=== PATIENT | female | born 1930 | race Caucasian/White ===

== ENCOUNTER 2018-07-31 15:54 | Inpatient (IN) ==
[2018-07-31] MEDS: Ondansetron ODT 4 MG TAB.RAPDIS SL PRN (20:06)
[2018-07-31] MEDS: *HR* OxyCODONE/APAP 5/325 TABLET PO PRN (20:06)
[2018-07-31] MEDS: Budesonide/Formoterol 160/4.5 1 PUFF INH IH SCH (22:43)
[2018-08-01] MEDS: *HR* OxyCODONE/APAP 5/325 TABLET PO PRN ×2 (03:14→08:50)
[2018-08-01] MEDS: Ondansetron ODT 4 MG TAB.RAPDIS SL PRN ×3 (03:14→20:34)
[2018-08-01] MEDS: Cholecalciferol (D-3) 1,000 UNIT (25MCG) TABLET PO SCH (08:50)
[2018-08-01] MEDS: Budesonide/Formoterol 160/4.5 1 PUFF INH IH SCH ×2 (09:15→21:22)
--- NOTE | 2018-08-01 15:03 | Internal Med History&Physical ---
Date of Encounter: 08/01/18 Time of Encounter: 14:30 Assessment and Plan (1) Humeral head fracture Current visit: No Status: Acute Status post reverse right TSR. PT and OT evaluations have been ordered. Percocet has been ordered for pain. Qualifiers: Encounter type: initial encounter Fracture type: closed Laterality: right Qualified Code(s): S42.291A - Other displaced fracture of upper end of right humerus, initial encounter for closed fracture (2) Anemia Current visit: Yes Status: Acute Anemia testing will be done in a.m. Qualifiers: Anemia type: unspecified type Qualified Code(s): D64.9 - Anemia, unspecifi ed (3) COPD (chronic obstructive pulmonary disease) Current visit: No Status: Chronic By history. She is asymptomatic at this time. Continue Symbicort Qualifiers: COPD type: unspecified COPD Qualified Code(s): J44.9 - Chronic obstructive pulmonary disease, unspecified Internal Medicine - H&P: HPI Chief complaint: Right shoulder fracture repair Admitted From: Hospital to Hospital Transfer Plans for Post Hospital Care: Home History of present illness: Ms. Zamudio is a 88 year old female who was transferred to [facility] swing bed after an [facility] July 1316 stay following a fall on the sidewalk at [facility] resulting in comminuted displaced fracture of the humeral head and anterior glenohumeral joint dislocation. She underwent reverse right TSR 08/13/2018. Her postop course was unremarkable. She was discharged to [facility] swing bed for rehabilitation prior to returning to independent living at home. She denies arthritis gout or other bone joint or muscle disorders. She states the fall was due to tripping on an uneven sidewalk. She had some facial contusion/abrasions but there was no loss of consciousness or other significant injury sustained. Past Med Surg Social Fam HX - Past Medical History Medical history: COPD, GERD, hyperlipidemia Psychiatric history: anxiety, depression - Past Surgical History Surgical History: non-contributory Additional surgical history: right total shoulder reversal 07/27/18 - Social History Smoking Status: Never smoker Smokeless Tobacco Status: No Alcohol use: none Drug use: none - Family History Mother Hx Family Cardiac Disorders: Yes Father Hx Family Neurologic Disorders: Yes (parkinsons) Internal Medicine - H&P: Meds Cholecalciferol (Vitamin D3) [Vitamin D3] 3,000 unit PO DAILY 06/07/16 [History] Ferrous Sulfate [Iron] 325 mg PO DAILY 06/07/16 [History] Ubidecarenone [Coenzyme Q10] 100 mg PO DAILY 07/27/18 [History] Albuterol Sulfate [Proair Hfa] 1 - 2 puff IH Q4-6H PRN 07/28/18 [History] Budesonide/Formoterol 160/4.5 [Symbicort 160/4.5] 2 puff IH BIDR 07/28/18 [History] Dm Hb/PE/Acetaminophen/Chlorph [[place] Plus Cld-Cough Cp] 1 cap PO DAILY PRN 07/28/18 [History] Lovastatin 40 mg PO QPM 07/28/18 [History] Omeprazole [PriLOSEC] 20 mg PO BID PRN 07/28/18 [History] Docusate [Colace] 100 mg PO BID capsule 07/31/18 [Rx] MOM Conc [MILK OF MAGNESIA conc] 10 ml PO DAILY PRN ud.liq 07/31/18 [Rx] OxyCODONE/APAP 5/325 [Percocet 5/325 MG] 1 each PO Q4HR PRN 5 Days #20 tablet 07/31/18 [Rx] Allergy/AdvReac Type Severity Reaction Status Date / Time iodine Allergy See Verified 07/31/18 18:06 Comments sulfur dioxide Allergy Rash Verified 07/31/18 18:06 All Systems PM: A 10-system review of systems was performed and is negative for pertinent findings except as documented above in the HPI. Review of systems: Gen.: She states her weight has decreased approximately 3-5 pounds in the past year Cardiovascular: She denies hypertension CT heart failure angina DVT or pulmonary embolus Respiratory: She is a lifelong nonsmoker. She reports she has been told she has COPD but denies having PFTs. GI: She has had cholecystectomy. She denies disorders of her liver or exocrine pancreas : She has had urinary incontinence. She denies kidney or bladder disorders. Neurologic: She denies large distribution strokes or seizures. Endocrine: She has hyperlipidemia but denies diabetes or thyroid disease Hematology/oncology: She developed postop anemia after the TSR. She denies internal malignancies or other blood disorders. Psychiatric: She has had feelings of anxiety and depression recently but does not take medication for these. She denies other mental health diagnoses. [place] skeletal: As per history of present illness - Constitutional Vitals: Temp Pulse Resp BP Pulse Ox 98.7 F 74 18 103/51 94 08/01/18 06:44 08/01/18 06:44 08/01/18 09:15 08/01/18 06:44 08/01/18 09:15 Exam: Gen.: She is a well-developed well-nourished female lying quietly in bed who appears in no acute distress HEENT: Head shows resolving ecchymosis of her periorbital area bilaterally more on the right than the left. There are superficial abrasions of the skin of her nose. Eyes: EOMI. There is no scleral icterus. Mouth: Mucosa is moist. Neck: Supple and nontender. There is no thyromegaly or adenopathy noted. Heart: Regular without murmurs gallops or ectopics Lungs: No wheezes or crackles are heard. Abdomen: Soft and nontender. No masses or guarding are noted. Extremities: There is no cyanosis edema or clubbing noted of her legs. Dorsalis pedis and posterior tibial pulses are 1-2 over 2 bilaterally. The right arm is in an immobilization sling. A surgical dressing is in place over the right anterior shoulder. The left arm is unremarkable. Neurologic: Mental status: She is talkative and a good historian. Cranial nerves: Smile is symmetric. Forehead wrinkles bilaterally. Tongue protrudes midline. EOMI. Motor: There is no pronator drift. Cerebellar: Finger to nose is intact bilaterally. Skin: Warm and dry
[2018-08-02 06:09] LABS: Basophils % 0.3 %; Eosinophils # 0.3 K/mcL (0.0-0.6); Eosinophils % 4.1 %; Hematocrit 28.3 % (35.3-44.9); Immature Granulocytes % 0.7 % (0-4); Lymphocytes # 1.4 K/mcL (0.6-4.6); Lymphocytes % 19.3 %; Mean Corpuscular HGB Conc 35.3 g/dL (31.6-35.5); Mean Corpuscular Hemoglobin 34.1 pg (28.0-33.3); Mean Corpuscular Volume 96.6 fL (83.0-100.0); Mean Platelet Volume 10.9 fL (9.4-12.4); Monocytes # 0.9 K/mcL (0.0-1.3); Monocytes % 12.9 %; Neutrophils # 4.5 K/mcL (1.6-8.9); Platelet Count 180 K/mcL (140-400); Red Blood Count 2.93 M/mcL (3.82-4.97); Red Cell Distribution Width 13.8 % (11.5-14.5); Segmented Neutrophils % 62.7 %; White Blood Count 7.1 K/mcL (4.3-11.1)
[2018-08-02] MEDS: Ondansetron ODT 4 MG TAB.RAPDIS SL PRN (06:41)
[2018-08-02] MEDS: Cholecalciferol (D-3) 1,000 UNIT (25MCG) TABLET PO SCH (07:58)
[2018-08-02] MEDS: Budesonide/Formoterol 160/4.5 1 PUFF INH IH SCH ×2 (09:39→22:37)
[2018-08-02 09:48] LABS: Folate 15.1 ng/mL (3.0-16.0)
[2018-08-02 10:07] LABS: % Iron Saturation 17 % (15-50); Ferritin 670 ng/mL (10-120); Iron 32 mcg/dL (50-170); Transferrin 137 mg/dL (203-362)
[2018-08-02] MEDS: MOM Conc 10 ML UD.LIQ PO PRN (11:45)
--- NOTE | 2018-08-02 14:40 | Internal Med Progress Note ---
Date of Encounter: 08/02/18 Time of Encounter: 14:30 - Assessment and plan (1) Humeral head fracture Current Visit: No Status: Acute Assessment and plan: August 02. Status post reverse right TSR. PT and OT evaluations have been ordered. Percocet has been ordered for pain. Qualifiers: Encounter type: initial encounter Fracture type: closed Laterality: right Qualified Code(s): S42.291A - Other displaced fracture of upper end of right humerus, initial encounter for closed fracture (2) Anemia Current Visit: Yes Status: Acute Assessment and plan: August 02. Hemoglobin has decreased slightly to 10.0. Anemia testing shows iron 32, transferrin saturation 17%, transferrin 137, ferritin 670, B12 1177, and folate 15.1. Continue to monitor CBC. Qualifiers: Anemia type: unspecified type Qualified Code(s): D64.9 - Anemia, unspecified (3) COPD (chronic obstructive pulmonary disease) Current Visit: No Status: Chronic Assessment and plan: August 02. By history. She is asymptomatic at this time. Continue Symbicort Qualifiers: COPD type: unspecified COPD Qualified Code(s): J44.9 - Chronic obstructive pulmonary disease, unspecified (4) Nausea Current Visit: Yes Status: Acute Assessment and plan: August 02. Minimal relief with Zofran. Phenergan will be ordered. - Subjective Interval history: August 02. She has no new complaints except nausea. - Constitutional Vitals: Temp Pulse Resp BP Pulse Ox 99.1 F 81 18 154/77 94 08/02/18 07:44 08/02/18 07:44 08/02/18 09:39 08/02/18 07:44 08/02/18 09:39 Exam: She is resting comfortably on the side of the bed and appears in no acute dis tress. Her affect is overall cheerful. I reviewed her medications and lab results. Internal Medicine: Result - Labs CBC & Chem 7: 08/02/18 05:05 Labs: Short CBC 08/02/18 Range/Units 05:05 WBC 7.1 (4.3-11.1) K/mcL Hgb 10.0 L (11.5-15.4) g/dL Hct 28.3 L (35.3-44.9) % Plt Count 180 (140-400) K/mcL Neutrophils # 4.5 (1.6-8.9) K/[facility] Consult Discharge Plan - Plan Referrals: Luis Webb DO [Primary Care Provider] - 1 week
[2018-08-02] MEDS: *HR* OxyCODONE/APAP 5/325 TABLET PO PRN ×2 (15:22→22:18)
[2018-08-03] MEDS: Cholecalciferol (D-3) 1,000 UNIT (25MCG) TABLET PO SCH (08:23)
[2018-08-03] MEDS: Ondansetron ODT 4 MG TAB.RAPDIS SL PRN (08:33)
[2018-08-03] MEDS: *HR* OxyCODONE/APAP 5/325 TABLET PO PRN ×3 (08:35→22:30)
[2018-08-03] MEDS: Budesonide/Formoterol 160/4.5 1 PUFF INH IH SCH ×2 (10:26→22:22)
[2018-08-04 06:04] LABS: Basophils % 0.4 %; Eosinophils # 0.3 K/mcL (0.0-0.6); Eosinophils % 3.5 %; Hematocrit 27.4 % (35.3-44.9); Hemoglobin 9.8 g/dL (11.5-15.4); Immature Granulocytes % 0.8 % (0-4); Lymphocytes # 1.4 K/mcL (0.6-4.6); Lymphocytes % 17.4 %; Mean Corpuscular HGB Conc 35.8 g/dL (31.6-35.5); Mean Corpuscular Hemoglobin 34.9 pg (28.0-33.3); Mean Corpuscular Volume 97.5 fL (83.0-100.0); Monocytes % 13.2 %; Platelet Count 226 K/mcL (140-400); Red Blood Count 2.81 M/mcL (3.82-4.97); Red Cell Distribution Width 13.8 % (11.5-14.5); Segmented Neutrophils % 64.7 %; White Blood Count 7.7 K/mcL (4.3-11.1)
[2018-08-04 06:23] LABS: BUN/Creatinine Ratio 26 (6-26); Blood Urea Nitrogen 15 mg/dL (8-23); Calcium 8.4 mg/dL (8.6-10.3); Carbon Dioxide 28 mEq/L (23-29); Chloride 101 mEq/L (98-107); Glucose 102 mg/dL (70-105); Osmolality,Calculated 279 (280-300); Potassium 4.3 mEq/L (3.5-5.1); Sodium 134 mEq/L (136-145); eGFR For African Americans > 60 (> 60); eGFR For Non-African Americans > 60 (> 60)
[2018-08-04] MEDS: *HR* OxyCODONE/APAP 5/325 TABLET PO PRN ×2 (10:03→21:33)
[2018-08-04] MEDS: Cholecalciferol (D-3) 1,000 UNIT (25MCG) TABLET PO SCH (10:03)
[2018-08-04] MEDS: Ondansetron ODT 4 MG TAB.RAPDIS SL PRN (10:04)
[2018-08-04] MEDS: Budesonide/Formoterol 160/4.5 1 PUFF INH IH SCH ×2 (10:41→22:10)
--- NOTE | 2018-08-04 16:27 | Internal Med Progress Note ---
Date of Encounter: 08/04/18 Time of Encounter: 16:20 - Assessment and plan (1) Humeral head fracture Current Visit: No Status: Acute Assessment and plan: August 02. Status post reverse right TSR. PT and OT evaluations have been ordered. Percocet has been ordered for pain. Qualifiers: Encounter type: initial encounter Fracture type: closed Laterality: right Qualified Code(s): S42.291A - Other displaced fracture of upper end of right humerus, initial encounter for closed fracture (2) Anemia Current Visit: Yes Status: Acute Assessment and plan: August 02. Hemoglobin has decreased slightly to 10.0. Anemia testing shows iron 32, transferrin saturation 17%, transferrin 137, ferritin 670, B12 1177, and folate 15.1. Continue to monitor CBC. August 04. Hemoglobin minimally changed 9.8. Continue to monitor. Qualifiers: Anemia type: unspecified type Qualified Code(s): D64.9 - Anemia, unspecified (3) COPD (chronic obstructive pulmonary disease) Current Visit: No Status: Chronic Assessment and plan: August 02. By history. She is asymptomatic at this time. Continue Symbicort Qualifiers: COPD type: unspecified COPD Qualified Code(s): J44.9 - Chronic obstructive pulmonary disease, unspecified (4) Nausea Current Visit: Yes Status: Acute Assessment and plan: August 02. Minimal relief with Zofran. Phenergan will be ordered. August 04. Stable to slightly improved. Continue present Rx. - Subjective Interval history: August 02. She has no new complaints except nausea. August 04. She has no new complaints. - Constitutional Vitals: Temp Pulse Resp BP Pulse Ox 98.7 F 74 12 126/71 96 08/04/18 07:00 08/04/18 07:00 08/04/18 10:41 08/04/18 07:00 08/04/18 10:41 Exam: She is resting comfortably in bed and appears in no acute distress. Her affect is more cheerful. Ecchymoses are showing resolution as expected. I reviewed her medications and lab results. Internal Medicine: Result - Labs CBC & Chem 7: 08/04/18 05:52 08/04/18 05:52 Labs: Short CBC 08/04/18 Range/Units 05:52 WBC 7.7 (4.3-11.1) K/mcL Hgb 9.8 L (11.5-15.4) g/dL Hct 27.4 L (35.3-44.9) % Plt Count 226 (140-400) K/mcL Neutrophils # 5.0 (1.6-8.9) K/mcL BMP 08/04/18 05:52 Sodium 134 L Potassium 4.3 Chloride 101 Carbon Dioxide 28 BUN 15 Creatinine 0.58 L Glucose 102 Calcium 8.4 L Consult Discharge Plan - Plan Referrals: Luis Webb DO [Primary Care Provider] - 1 week
[2018-08-05] MEDS: Cholecalciferol (D-3) 1,000 UNIT (25MCG) TABLET PO SCH (08:59)
[2018-08-05] MEDS: Budesonide/Formoterol 160/4.5 1 PUFF INH IH SCH ×2 (09:03→22:31)
[2018-08-05] MEDS: *HR* OxyCODONE/APAP 5/325 TABLET PO PRN ×2 (14:05→22:33)
[2018-08-06] MEDS: Cholecalciferol (D-3) 1,000 UNIT (25MCG) TABLET PO SCH (08:14)
[2018-08-06] MEDS: Budesonide/Formoterol 160/4.5 1 PUFF INH IH SCH ×2 (09:45→22:01)
[2018-08-06] MEDS: Ondansetron ODT 4 MG TAB.RAPDIS SL PRN (17:59)
[2018-08-06] MEDS: *HR* OxyCODONE/APAP 5/325 TABLET PO PRN ×2 (17:59→22:00)
[2018-08-07] MEDS: Budesonide/Formoterol 160/4.5 1 PUFF INH IH SCH ×2 (09:12→21:30)
[2018-08-07] MEDS: Cholecalciferol (D-3) 1,000 UNIT (25MCG) TABLET PO SCH (10:28)
--- NOTE | 2018-08-07 11:54 | Internal Med Progress Note ---
Date of Encounter: 08/07/18 Time of Encounter: 11:40 - Assessment and plan (1) Humeral head fracture Current Visit: No Status: Acute Assessment and plan: August 02. Status post reverse right TSR. PT and OT evaluations have been ordered. Percocet has been ordered for pain. August 07. Pain is slowly lessening. Will schedule Tylenol and BenGay/ Lidoderm patch. Qualifiers: Encounter type: initial encounter Fracture type: closed Laterality: right Qualified Code(s): S42.291A - Other displaced fracture of upper end of right humerus, initial encounter for closed fracture (2) Anemia Current Visit: Yes Status: Acute Assessment and plan: August 02. Hemoglobin has decreased slightly to 10.0. Anemia testing shows iron 32, transferrin saturation 17%, transferrin 137, ferritin 670, B12 1177, and folate 15.1. Continue to monitor CBC. August 04. Hemoglobin minimally changed 9.8. Continue to monitor. August 07. Recheck labs in a.m. Qualifiers: Anemia type: unspecified type Qualified Code(s): D64.9 - Anemia, unspecified (3) COPD (chronic obstructive pulmonary disease) Current Visit: No Status: Chronic Assessment and plan: August 02. By history. She is asymptomatic at this time. Continue Symbicort Qualifiers: COPD type: unspecified COPD Qualified Code(s): J44.9 - Chronic obstructive pulmonary disease, unspecified (4) Nausea Current Visit: Yes Status: Acute Assessment and plan: August 02. Minimal relief with Zofran. Phenergan will be ordered. August 04. Stable to slightly improved. Continue present Rx. August 07. Lessening. Continue present Rx. - Subjective Interval history: August 02. She has no new complaints except nausea. August 04. She has no new complaints. August 07. She has no new complaints. Her nausea is lessening. - Constitutional Vitals: Temp Pulse Resp BP Pulse Ox 98.6 F 80 16 116/69 95 08/07/18 09:15 08/07/18 09:15 08/07/18 09:15 08/07/18 09:15 08/07/18 09:15 Exam: She is sitting in a chair at bedside resting comfortably. Her affect is bright and cheerful. Ecchymosis are showing evolutionary improvement changes. I note her eyeglasses have a broken nose piece and scratched right glans from the fall at [facility]. I reviewed her medications and lab results. Internal Medicine: Result - Labs CBC & Chem 7: 08/04/18 05:52 08/04/18 05:52 Consult Discharge Plan - Plan Referrals: Luis Webb DO [Primary Care Provider] - 1 week
[2018-08-07] MEDS: Acetaminophen 325 MG TABLET PO SCH ×2 (12:49→17:11)
[2018-08-07] MEDS: Methyl Salicylate/Menthol 28 GM TUBE TP SCH (12:59)
[2018-08-07] MEDS: *HR* OxyCODONE/APAP 5/325 TABLET PO PRN (21:34)
[2018-08-08 06:02] LABS: Basophils % 0.4 %; Eosinophils # 0.3 K/mcL (0.0-0.6); Hematocrit 27.5 % (35.3-44.9); Hemoglobin 10.1 g/dL (11.5-15.4); Immature Granulocytes % 0.6 % (0-4); Lymphocytes # 1.2 K/mcL (0.6-4.6); Lymphocytes % 14.3 %; Mean Corpuscular HGB Conc 36.7 g/dL (31.6-35.5); Mean Corpuscular Hemoglobin 35.7 pg (28.0-33.3); Mean Corpuscular Volume 97.2 fL (83.0-100.0); Mean Platelet Volume 9.9 fL (9.4-12.4); Monocytes # 0.8 K/mcL (0.0-1.3); Monocytes % 9.5 %; Neutrophils # 6.2 K/mcL (1.6-8.9); Platelet Count 324 K/mcL (140-400); Red Blood Count 2.83 M/mcL (3.82-4.97); Red Cell Distribution Width 13.6 % (11.5-14.5); Segmented Neutrophils % 72.2 %; White Blood Count 8.5 K/mcL (4.3-11.1)
[2018-08-08] MEDS: Acetaminophen 325 MG TABLET PO SCH ×5 (06:28→20:45)
[2018-08-08] MEDS: Cholecalciferol (D-3) 1,000 UNIT (25MCG) TABLET PO SCH (07:45)
[2018-08-08] MEDS: Methyl Salicylate/Menthol 28 GM TUBE TP SCH (07:46)
[2018-08-08] MEDS: Budesonide/Formoterol 160/4.5 1 PUFF INH IH SCH ×2 (10:33→22:16)
[2018-08-08] MEDS: *HR* OxyCODONE/APAP 5/325 TABLET PO PRN (22:44)
[2018-08-09] MEDS: Acetaminophen 325 MG TABLET PO SCH ×3 (05:34→17:12)
[2018-08-09] MEDS: Methyl Salicylate/Menthol 28 GM TUBE TP SCH (07:18)
[2018-08-09] MEDS: Cholecalciferol (D-3) 1,000 UNIT (25MCG) TABLET PO SCH (07:18)
[2018-08-09] MEDS: Budesonide/Formoterol 160/4.5 1 PUFF INH IH SCH ×2 (07:50→22:49)
[2018-08-09] MEDS: *HR* OxyCODONE/APAP 5/325 TABLET PO PRN (20:35)
[2018-08-10] MEDS: Acetaminophen 325 MG TABLET PO SCH ×4 (00:20→17:10)
[2018-08-10] MEDS: Cholecalciferol (D-3) 1,000 UNIT (25MCG) TABLET PO SCH (08:44)
[2018-08-10] MEDS: Methyl Salicylate/Menthol 28 GM TUBE TP SCH (09:05)
[2018-08-10] MEDS: Budesonide/Formoterol 160/4.5 1 PUFF INH IH SCH ×2 (09:52→22:46)
--- NOTE | 2018-08-10 15:10 | Internal Med Progress Note ---
Date of Encounter: 08/10/18 Time of Encounter: 14:55 - Assessment and plan (1) Humeral head fracture Current Visit: No Status: Acute Assessment and plan: August 02. Status post reverse right TSR. PT and OT evaluations have been ordered. Percocet has been ordered for pain. August 07. Pain is slowly lessening. Will schedule Tylenol and BenGay/ Lidoderm patch. August 10. She had the immobilization sling removed by orthopedist staff. Continue therapy Rx. Qualifiers: Encounter type: initial encounter Fracture type: closed Laterality: right Qualified Code(s): S42.291A - Other displaced fracture of upper end of right humerus, initial encounter for closed fracture (2) Anemia Current Visit: Yes Status: Acute Assessment and plan: August 02. Hemoglobin has decreased slightly to 10.0. Anemia testing shows iron 32, transferrin saturation 17%, transferrin 137, ferritin 670, B12 1177, and folate 15.1. Continue to monitor CBC. August 04. Hemoglobin minimally changed 9.8. Continue to monitor. August 07. Recheck labs in a.m. August 10. Hemoglobin improved to 10.1. Continue to monitor periodically. Qualifiers: Anemia type: unspecified type Qualified Code(s): D64.9 - Anemia, unspecified (3) COPD (chronic obstructive pulmonary disease) Current Visit: No Status: Chronic Assessment and plan: August 02. By history. She is asymptomatic at this time. Continue Symbicort Qualifiers: COPD type: unspecified COPD Qualified Code(s): J44.9 - Chronic obstructive pulmonary disease, unspecified (4) Nausea Current Visit: Yes Status: Acute Assessment and plan: August 02. Minimal relief with Zofran. Phenergan will be ordered. August 04. Stable to slightly improved. Continue present Rx. August 07. Lessening. Continue present Rx. - Subjective Interval history: August 02. She has no new complaints except nausea. August 04. She has no new complaints. August 07. She has no new complaints. Her nausea is lessening. August 10. She has no new complaints. - Constitutional Vitals: Temp Pulse Resp BP Pulse Ox 98.4 F 72 16 108/64 96 08/10/18 07:04 08/10/18 07:04 08/10/18 09:53 08/10/18 07:04 08/10/18 09:53 Exam: She is resting comfortably in a chair at bedside and appears in no acute distress. Her affect is bright and cheerful. Ecchymosis show expected evolutionary improvement. I reviewed her medications and lab results. Internal Medicine: Result - Labs CBC & Chem 7: 08/08/18 05:05 08/04/18 05:52 Consult Discharge Plan - Plan Referrals: Luis Webb DO [Primary Care Provider] - 1 week
[2018-08-10] MEDS: *HR* OxyCODONE/APAP 5/325 TABLET PO PRN (20:35)
[2018-08-11] MEDS: Acetaminophen 325 MG TABLET PO SCH ×5 (00:10→23:35)
[2018-08-11] MEDS: *HR* OxyCODONE/APAP 5/325 TABLET PO PRN ×3 (05:17→23:28)
[2018-08-11] MEDS: Budesonide/Formoterol 160/4.5 1 PUFF INH IH SCH ×2 (09:51→22:39)
[2018-08-11] MEDS: Cholecalciferol (D-3) 1,000 UNIT (25MCG) TABLET PO SCH (10:17)
[2018-08-11] MEDS: Methyl Salicylate/Menthol 28 GM TUBE TP SCH (11:33)
[2018-08-12] MEDS: Acetaminophen 325 MG TABLET PO SCH ×3 (06:22→18:07)
[2018-08-12] MEDS: Cholecalciferol (D-3) 1,000 UNIT (25MCG) TABLET PO SCH (08:24)
[2018-08-12] MEDS: Budesonide/Formoterol 160/4.5 1 PUFF INH IH SCH ×2 (10:00→21:06)
[2018-08-12] MEDS: *HR* OxyCODONE/APAP 5/325 TABLET PO PRN ×2 (12:54→21:51)
[2018-08-12] MEDS: Methyl Salicylate/Menthol 28 GM TUBE TP SCH (12:59)
[2018-08-13] MEDS: Acetaminophen 325 MG TABLET PO SCH ×4 (00:37→17:07)
[2018-08-13] MEDS: Budesonide/Formoterol 160/4.5 1 PUFF INH IH SCH ×2 (09:32→21:31)
[2018-08-13] MEDS: *HR* OxyCODONE/APAP 5/325 TABLET PO PRN ×2 (10:34→21:45)
[2018-08-13] MEDS: Cholecalciferol (D-3) 1,000 UNIT (25MCG) TABLET PO SCH (10:34)
[2018-08-13] MEDS: Methyl Salicylate/Menthol 28 GM TUBE TP SCH (10:34)
[2018-08-14] MEDS: Acetaminophen 325 MG TABLET PO SCH ×4 (00:30→17:23)
[2018-08-14] MEDS: *HR* OxyCODONE/APAP 5/325 TABLET PO PRN ×2 (04:41→23:09)
[2018-08-14] MEDS: Cholecalciferol (D-3) 1,000 UNIT (25MCG) TABLET PO SCH (07:53)
[2018-08-14] MEDS: Methyl Salicylate/Menthol 28 GM TUBE TP SCH (07:54)
[2018-08-14] MEDS: Budesonide/Formoterol 160/4.5 1 PUFF INH IH SCH ×2 (09:15→22:21)
--- NOTE | 2018-08-14 18:18 | Internal Med Progress Note ---
Date of Encounter: 08/14/18 Time of Encounter: 18:10 - Assessment and plan (1) Humeral head fracture Current Visit: No Status: Acute Assessment and plan: August 02. Status post reverse right TSR. PT and OT evaluations have been ordered. Percocet has been ordered for pain. August 07. Pain is slowly lessening. Will schedule Tylenol and BenGay/ Lidoderm patch. August 10. She had the immobilization sling removed by orthopedist staff. Continue therapy Rx. Qualifiers: Encounter type: initial encounter Fracture type: closed Laterality: right Qualified Code(s): S42.291A - Other displaced fracture of upper end of right humerus, initial encounter for closed fracture (2) Anemia Current Visit: Yes Status: Acute Assessment and plan: August 02. Hemoglobin has decreased slightly to 10.0. Anemia testing shows iron 32, transferrin saturation 17%, transferrin 137, ferritin 670, B12 1177, and folate 15.1. Continue to monitor CBC. August 04. Hemoglobin minimally changed 9.8. Continue to monitor. August 07. Recheck labs in a.m. August 10. Hemoglobin improved to 10.1. Continue to monitor periodically. Qualifiers: Anemia type: unspecified type Qualified Code(s): D64.9 - Anemia, unspecified (3) COPD (chronic obstructive pulmonary disease) Current Visit: No Status: Chronic Assessment and plan: August 02. By history. She is asymptomatic at this time. Continue Symbicort Qualifiers: COPD type: unspecified COPD Qualified Code(s): J44.9 - Chronic obstructive pulmonary disease, unspecified (4) Nausea Current Visit: Yes Status: Acute Assessment and plan: August 02. Minimal relief with Zofran. Phenergan will be ordered. August 04. Stable to slightly improved. Continue present Rx. August 07. Lessening. Continue present Rx. August 14. She did not mention this today. Continue present Rx. - Subjective Interval history: August 02. She has no new complaints except nausea. August 04. She has no new complaints. August 07. She has no new complaints. Her nausea is lessening. August 10. She has no new complaints. August 14. She has no new complaints. She reports having an optometry exam for new eyeglasses over the weekend. She reports occasional sensation of swelling in her right arm. - Constitutional Vitals: Temp Pulse Resp BP Pulse Ox 98.4 F 63 12 118/63 95 08/14/18 07:32 08/14/18 07:32 08/14/18 09:15 08/14/18 07:32 08/14/18 09:15 Exam: She is resting comfortably in bed and appears in no acute distress. Facial ecchymosis continue to resolve. There is very slight edema in her right arm and hand compared to the left. There is trace edema of her lower legs bilaterally, slightly more on left than right. I reviewed her medications and lab results. Internal Medicine: Result - Labs CBC & Chem 7: 08/08/18 05:05 08/04/18 05:52 Consult Discharge Plan - Plan Referrals: Lius Webb DO [Primary Care Provider] - 1 week
[2018-08-14] MEDS: Ondansetron ODT 4 MG TAB.RAPDIS SL PRN (20:12)
[2018-08-15] MEDS: Acetaminophen 325 MG TABLET PO SCH ×4 (00:18→16:58)
[2018-08-15] MEDS: Cholecalciferol (D-3) 1,000 UNIT (25MCG) TABLET PO SCH (08:25)
[2018-08-15] MEDS: Methyl Salicylate/Menthol 28 GM TUBE TP SCH (08:27)
[2018-08-15] MEDS: Budesonide/Formoterol 160/4.5 1 PUFF INH IH SCH ×2 (09:44→21:27)
[2018-08-15 11:11] LABS: Bilirubin,Urine Negative (Negative); Blood,Urine Trace-intact (Negative); Clarity,Urine Cloudy (Clear); Color,Urine Yellow (Yellow); Glucose,Urine (UA) Normal (Normal); Ketones,Urine Negative (Negative); Leukocyte Esterase,Urine Large (Negative); Nitrite,Urine Negative (Negative); Protein,Urine Negative (Neg-Trace); Urobilinogen,Urine Normal (Normal)
[2018-08-15 11:18] LABS: Bacteria,Urine Many per hpf (None-Few); Mucus,Urine Moderate (Few); Squamous Epithelial Cell,Urine Few per lpf (None-Few); WBC,Urine TNTC per hpf (0-3)
[2018-08-16] MEDS: Acetaminophen 325 MG TABLET PO SCH ×4 (00:52→17:09)
[2018-08-16] MEDS: Cholecalciferol (D-3) 1,000 UNIT (25MCG) TABLET PO SCH (08:52)
[2018-08-16] MEDS: Methyl Salicylate/Menthol 28 GM TUBE TP SCH (08:55)
[2018-08-16] MEDS: Budesonide/Formoterol 160/4.5 1 PUFF INH IH SCH ×2 (10:06→21:43)
--- NOTE | 2018-08-16 12:25 | Internal Med Progress Note ---
Date of Encounter: 08/16/18 Time of Encounter: 12:15 - Assessment and plan (1) Humeral head fracture Current Visit: No Status: Acute Assessment and plan: August 02. Status post reverse right TSR. PT and OT evaluations have been ordered. Percocet has been ordered for pain. August 07. Pain is slowly lessening. Will schedule Tylenol and BenGay/ Lidoderm patch. August 10. She had the immobilization sling removed by orthopedist staff. Continue therapy Rx. Qualifiers: Encounter type: initial encounter Fracture type: closed Laterality: right Qualified Code(s): S42.291A - Other displaced fracture of upper end of right humerus, initial encounter for closed fracture (2) Anemia Current Visit: Yes Status: Acute Assessment and plan: August 02. Hemoglobin has decreased slightly to 10.0. Anemia testing shows iron 32, transferrin saturation 17%, transferrin 137, ferritin 670, B12 1177, and folate 15.1. Continue to monitor CBC. August 04. Hemoglobin minimally changed 9.8. Continue to monitor. August 07. Recheck labs in a.m. August 10. Hemoglobin improved to 10.1. Continue to monitor periodically. August 16. Recheck labs in a.m. Qualifiers: Anemia type: unspecified type Qualified Code(s): D64.9 - Anemia, unspecified (3) COPD (chronic obstructive pulmonary disease) Current Visit: No Status: Chronic Assessment and plan: August 02. By history. She is asymptomatic at this time. Continue Symbicort Qualifiers: COPD type: unspecified COPD Qualified Code(s): J44.9 - Chronic obstructive pulmonary disease, unspecified (4) Nausea Current Visit: Yes Status: Acute Assessment and plan: August 02. Minimal relief with Zofran. Phenergan will be ordered. August 04. Stable to slightly improved. Continue present Rx. August 07. Lessening. Continue present Rx. August 14. She did not mention this today. Continue present Rx. (5) UTI (urinary tract infection) Current Visit: Yes Status: Acute Assessment and plan: August 16. She complained of dysuria yesterday and UA/C&S was done with preliminary culture showing gram-negative rods. Start Cipro empirically with lactobacillus. Qualifiers: Urinary tract infection type: site unspecified Hematuria presence: without hematuria Qualified Code(s): N39.0 - Urinary tract infection, site not speci fied - Subjective Interval history: August 02. She has no new complaints except nausea. August 04. She has no new complaints. August 07. She has no new complaints. Her nausea is lessening. August 10. She has no new complaints. August 14. She has no new complaints. She reports having an optometry exam for new eyeglasses over the weekend. She reports occasional sensation of swelling in her right arm. August 16. She has no new complaints. - Constitutional Vitals: Temp Pulse Resp BP Pulse Ox 97.3 F L 69 16 133/68 95 08/16/18 06:47 08/16/18 06:47 08/16/18 10:07 08/16/18 06:47 08/16/18 10:07 Exam: She is resting comfortably in a chair at bedside and appears in no acute distress. Her affect is bright and cheerful. I reviewed her medications and lab results. Internal Medicine: Result - Labs CBC & Chem 7: 08/08/18 05:05 08/04/18 05:52 Labs: Urine 08/15/18 Range/Units 11:00 Urine Color Yellow (Yellow) Urine Clarity Cloudy A (Clear) Urine pH 6.0 (5.0-8.0) pH Units Ur Specific [place] 1.020 (1.010-1.025) Urine Protein Negative (Neg-Trace) mg/dL Urine Glucose (UA) Normal (Normal) mg/dL Consult Discharge Plan - Plan Referrals: Luis Webb DO [Primary Care Provider] - 1 week
[2018-08-16] MEDS: Lactobacillus 1 EACH CAP.SPRINK PO SCH (21:00)
[2018-08-17] MEDS: *HR* OxyCODONE/APAP 5/325 TABLET PO PRN ×2 (00:30→22:29)
[2018-08-17] MEDS: Acetaminophen 325 MG TABLET PO SCH ×4 (00:31→16:57)
[2018-08-17 06:26] LABS: Basophils % 0.5 %; Eosinophils # 0.2 K/mcL (0.0-0.6); Eosinophils % 3.8 %; Hemoglobin 9.9 g/dL (11.5-15.4); Immature Granulocytes % 0.3 % (0-4); Lymphocytes # 1.6 K/mcL (0.6-4.6); Lymphocytes % 26.9 %; Mean Corpuscular Hemoglobin 31.1 pg (28.0-33.3); Mean Corpuscular Volume 94.3 fL (83.0-100.0); Mean Platelet Volume 9.4 fL (9.4-12.4); Monocytes # 0.7 K/mcL (0.0-1.3); Monocytes % 12.1 %; Neutrophils # 3.3 K/mcL (1.6-8.9); Platelet Count 289 K/mcL (140-400); Red Blood Count 3.18 M/mcL (3.82-4.97); Red Cell Distribution Width 13.6 % (11.5-14.5); Segmented Neutrophils % 56.4 %; White Blood Count 5.8 K/mcL (4.3-11.1)
[2018-08-17] MEDS: Budesonide/Formoterol 160/4.5 1 PUFF INH IH SCH ×2 (09:45→22:11)
[2018-08-17] MEDS: Methyl Salicylate/Menthol 28 GM TUBE TP SCH (10:20)
[2018-08-17] MEDS: Lactobacillus 1 EACH CAP.SPRINK PO SCH ×2 (10:20→21:05)
[2018-08-17] MEDS: Cholecalciferol (D-3) 1,000 UNIT (25MCG) TABLET PO SCH (10:20)
[2018-08-18] MEDS: Acetaminophen 325 MG TABLET PO SCH ×4 (00:12→17:13)
[2018-08-18] MEDS: Cholecalciferol (D-3) 1,000 UNIT (25MCG) TABLET PO SCH (08:44)
[2018-08-18] MEDS: Lactobacillus 1 EACH CAP.SPRINK PO SCH ×2 (08:44→20:03)
[2018-08-18] MEDS: MOM Conc 10 ML UD.LIQ PO PRN (08:45)
[2018-08-18] MEDS: Methyl Salicylate/Menthol 28 GM TUBE TP SCH (08:45)
[2018-08-18] MEDS: Budesonide/Formoterol 160/4.5 1 PUFF INH IH SCH ×2 (10:48→21:53)
[2018-08-18] MEDS: *HR* OxyCODONE/APAP 5/325 TABLET PO PRN (22:05)
[2018-08-19] MEDS: Acetaminophen 325 MG TABLET PO SCH ×5 (00:40→23:34)
[2018-08-19] MEDS: Budesonide/Formoterol 160/4.5 1 PUFF INH IH SCH ×2 (10:04→23:16)
[2018-08-19] MEDS: Cholecalciferol (D-3) 1,000 UNIT (25MCG) TABLET PO SCH (10:34)
[2018-08-19] MEDS: Methyl Salicylate/Menthol 28 GM TUBE TP SCH (10:35)
[2018-08-19] MEDS: Lactobacillus 1 EACH CAP.SPRINK PO SCH ×2 (10:35→21:35)
[2018-08-19] MEDS: MOM Conc 10 ML UD.LIQ PO PRN (10:35)
[2018-08-19] MEDS: *HR* OxyCODONE/APAP 5/325 TABLET PO PRN (21:38)
[2018-08-20] MEDS: Acetaminophen 325 MG TABLET PO SCH ×3 (05:53→15:17)
[2018-08-20] MEDS: Budesonide/Formoterol 160/4.5 1 PUFF INH IH SCH ×2 (09:09→22:40)
[2018-08-20] MEDS: Ondansetron ODT 4 MG TAB.RAPDIS SL PRN (09:30)
[2018-08-20] MEDS: Methyl Salicylate/Menthol 28 GM TUBE TP SCH (09:33)
[2018-08-20] MEDS: Cholecalciferol (D-3) 1,000 UNIT (25MCG) TABLET PO SCH (09:33)
[2018-08-20] MEDS: Lactobacillus 1 EACH CAP.SPRINK PO SCH (09:33)
--- NOTE | 2018-08-20 11:27 | Internal Med Progress Note ---
Date of Encounter: 08/20/18 Time of Encounter: 11:18 - Assessment and plan (1) Humeral head fracture Current Visit: No Status: Acute Assessment and plan: August 02. Status post reverse right TSR. PT and OT evaluations have been ordered. Percocet has been ordered for pain. August 07. Pain is slowly lessening. Will schedule Tylenol and BenGay/ Lidoderm patch. August 10. She had the immobilization sling removed by orthopedist staff. Continue therapy Rx. Qualifiers: Encounter type: initial encounter Fracture type: closed Laterality: right Qualified Code(s): S42.291A - Other displaced fracture of upper end of right humerus, initial encounter for closed fracture (2) Anemia Current Visit: Yes Status: Acute Assessment and plan: August 02. Hemoglobin has decreased slightly to 10.0. Anemia testing shows iron 32, transferrin saturation 17%, transferrin 137, ferritin 670, B12 1177, and folate 15.1. Continue to monitor CBC. August 04. Hemoglobin minimally changed 9.8. Continue to monitor. August 07. Recheck labs in a.m. August 10. Hemoglobin improved to 10.1. Continue to monitor periodically. August 16. Recheck labs in a.m. Qualifiers: Anemia type: unspecified type Qualified Code(s): D64.9 - Anemia, unspecified (3) COPD (chronic obstructive pulmonary disease) Current Visit: No Status: Chronic Assessment and plan: August 02. By history. She is asymptomatic at this time. Continue Symbicort Qualifiers: COPD type: unspecified COPD Qualified Code(s): J44.9 - Chronic obstructive pulmonary disease, unspecified (4) Nausea Current Visit: Yes Status: Acute Assessment and plan: August 02. Minimal relief with Zofran. Phenergan will be ordered. August 04. Stable to slightly improved. Continue present Rx. August 07. Lessening. Continue present Rx. August 14. She did not mention this today. Continue present Rx. August 20. She states she still has occasional nausea especially in the mornings. She has had no vomiting. Continue present Rx. (5) UTI (urinary tract infection) Current Visit: Yes Status: Acute Assessment and plan: August 16. She complained of dysuria yesterday and UA/C&S was done with preliminar y culture showing gram-negative rods. Start Cipro empirically with lactobacillus. August 20. Urine culture showed Escherichia coli with coverage by Cipro. She has completed 3 days of antibiotic. Will discontinue Rx. Qualifiers: Urinary tract infection type: site unspecified Hematuria presence: without hematuria Qualified Code(s): N39.0 - Urinary tract infection, site not specified - Subjective Interval history: August 02. She has no new complaints except nausea. August 04. She has no new complaints. August 07. She has no new complaints. Her nausea is lessening. August 10. She has no new complaints. August 14. She has no new complaints. She reports having an optometry exam for new eyeglasses over the weekend. She reports occasional sensation of swelling in her right arm. August 16. She has no new complaints. August 20. She has no new complaints. - Constitutional Vitals: Temp Pulse Resp BP Pulse Ox 98.5 F 66 18 130/70 76 08/20/18 07:12 08/20/18 07:12 08/20/18 09:10 08/20/18 07:12 08/20/18 09:10 Exam: She is sitting on the side of the bed resting comfortably. Her affect is bright and cheerful. I reviewed her medications and lab results. Internal Medicine: Result - Labs CBC & Chem 7: 08/17/18 06:16 08/04/18 05:52 Consult Discharge Plan - Plan Referrals: Luis Webb DO [Primary Care Provider] - 1 week
[2018-08-20] MEDS: *HR* OxyCODONE/APAP 5/325 TABLET PO PRN (21:27)
[2018-08-21] MEDS: Acetaminophen 325 MG TABLET PO SCH ×5 (00:50→23:04)
[2018-08-21] MEDS: Cholecalciferol (D-3) 1,000 UNIT (25MCG) TABLET PO SCH (09:23)
[2018-08-21] MEDS: Methyl Salicylate/Menthol 28 GM TUBE TP SCH (09:24)
[2018-08-21] MEDS: Budesonide/Formoterol 160/4.5 1 PUFF INH IH SCH ×2 (11:40→21:35)
[2018-08-21] MEDS: *HR* OxyCODONE/APAP 5/325 TABLET PO PRN (21:20)
[2018-08-22] MEDS: Acetaminophen 325 MG TABLET PO SCH ×3 (05:17→19:20)
[2018-08-22] MEDS: Cholecalciferol (D-3) 1,000 UNIT (25MCG) TABLET PO SCH (08:14)
[2018-08-22] MEDS: Methyl Salicylate/Menthol 28 GM TUBE TP SCH (08:14)
[2018-08-22] MEDS: Budesonide/Formoterol 160/4.5 1 PUFF INH IH SCH ×2 (10:55→20:33)
--- NOTE | 2018-08-22 17:46 | Internal Med Progress Note ---
Date of Encounter: 08/22/18 Time of Encounter: 17:40 - Assessment and plan (1) Humeral head fracture Current Visit: No Status: Acute Assessment and plan: August 02. Status post reverse right TSR. PT and OT evaluations have been ordered. Percocet has been ordered for pain. August 07. Pain is slowly lessening. Will schedule Tylenol and BenGay/ Lidoderm patch. August 10. She had the immobilization sling removed by orthopedist staff. Continue therapy Rx. August 22. Continue present Rx. Anticipate discharge home tomorrow. Qualifiers: Encounter type: initial encounter Fracture type: closed Laterality: right Qualified Code(s): S42.291A - Other displaced fracture of upper end of right humerus, initial encounter for closed fracture (2) Anemia Current Visit: Yes Status: Acute Assessment and plan: August 02. Hemoglobin has decreased slightly to 10.0. Anemia testing shows iron 32, transferrin saturation 17%, transferrin 137, ferritin 670, B12 1177, and folate 15.1. Continue to monitor CBC. August 04. Hemoglobin minimally changed 9.8. Continue to monitor. August 07. Recheck labs in a.m. August 10. Hemoglobin improved to 10.1. Continue to monitor periodically. August 16. Recheck labs in a.m. September 01. Hemoglobin stable at 9.9. Qualifiers: Anemia type: unspecified type Qualified Code(s): D64.9 - Anemia, unspecified (3) COPD (chronic obstructive pulmonary disease) Current Visit: No Status: Chronic Assessment and plan: August 02. By history. She is asymptomatic at this time. Continue Symbicort Qualifiers: COPD type: unspecified COPD Qualified Code(s): J44.9 - Chronic obstructive pulmonary disease, unspecified (4) Nausea Current Visit: Yes Status: Acute Assessment and plan: August 02. Minimal relief with Zofran. Phenergan will be ordered. August 04. Stable to slightly improved. Continue present Rx. August 07. Lessening. Continue present Rx. August 14. She did not mention this today. Continue present Rx. August 20. She states she still has occasional nausea especially in the mornings. She has had no vomiting. Continue present Rx. (5) UTI (urinary tract infection) Current Visit: Yes Status: Acute Assessment and plan: August 16. She complained of dysuria yesterday and UA/C&S was done with preli minary culture showing gram-negative rods. Start Cipro empirically with lactobacillus. August 20. Urine culture showed Escherichia coli with coverage by Cipro. She has completed 3 days of antibiotic. Will discontinue Rx. Qualifiers: Urinary tract infection type: site unspecified Hematuria presence: without hematuria Qualified Code(s): N39.0 - Urinary tract infection, site not specified - Subjective Interval history: August 02. She has no new complaints except nausea. August 04. She has no new complaints. August 07. She has no new complaints. Her nausea is lessening. August 10. She has no new complaints. August 14. She has no new complaints. She reports having an optometry exam for new eyeglasses over the weekend. She reports occasional sensation of swelling in her right arm. August 16. She has no new complaints. August 20. She has no new complaints. August 22. She has no new complaints. - Constitutional Vitals: Temp Pulse Resp BP Pulse Ox 97.8 F 64 14 146/82 96 08/22/18 06:59 08/22/18 06:59 08/22/18 10:55 08/22/18 06:59 08/22/18 10:55 Exam: She is sitting a chair at bedside resting comfortably. Her affect is bright and cheerful. I reviewed her medications and past lab results. Internal Medicine: Result - Labs CBC & Chem 7: 08/17/18 06:16 08/04/18 05:52 Consult Discharge Plan - Plan Referrals: Luis Webb DO [Primary Care Provider] - 1 week
[2018-08-22] MEDS: *HR* OxyCODONE/APAP 5/325 TABLET PO PRN (23:22)
[2018-08-23] MEDS: Acetaminophen 325 MG TABLET PO SCH ×3 (00:18→11:33)
[2018-08-23 07:08] VITALS: BP 127/68
--- NOTE | 2018-08-23 10:15 | Discharge Summary ---
Date of Encounter: 08/23/18 Time of Encounter: 10:05 - Discharge Diagnosis (1) Humeral head fracture Priority: Primary Status: Acute Qualifiers: Encounter type: initial encounter Fracture type: closed Laterality: right Qualified Code(s): S42.291A - Other displaced fracture of upper end of right humerus, initial encounter for closed fracture (2) Anemia Priority: Secondary Status: Acute Qualifiers: Anemia type: unspecified type Qualified Code(s): D64.9 - Anemia, unspecified (3) COPD (chronic obstructive pulmonary disease) Priority: Secondary Status: Chronic Qualifiers: COPD type: unspecified COPD Qualified Code(s): J44.9 - Chronic obstructive pulmonary disease, unspecified (4) Nausea Priority: Secondary Status: Acute (5) UTI (urinary tract infection) Priority: Secondary Status: Resolved Qualifiers: Urinary tract infection type: site unspecified Hematuria presence: without hematuria Qualified Code(s): N39.0 - Urinary tract infection, site not specified Hospital course: Ms. Zamudio is a 88 year old female who was transferred to [facility] swing bed after an [facility] July 1316 stay following a fall on the sidewalk at [facility] resulting in comminuted displaced fracture of the humeral head and anterior glenohumeral joint dislocation. She underwent reverse right TSR 08/13/2018. Her postop course was unremarkable. She was discharged to [facility] swing bed for rehabilitation prior to returning to independent living at home. Initial orders were written by the discharging physicians at [facility]. I saw her on August 01 and performed the swing bed history and physical. She had physical therapy and occupational therapy evaluations with ongoing intervention. She was given analgesics for pain. She had gradual improvement in therapy. No new complications developed. Anemia remained stable during her swing bed course with hemoglobin 9.9 on August 17. Anemia testing showed iron 32, transferrin saturation 70%, transferrin 137, ferritin 670, B12 1177, and folate 15.1. Her PCP can continue to monitor. On August 23 arrangements were complete for her to be discharged home. She will have home health services. She will follow with her PCP Dr. Luis Webb within 1 week. She will follow with her orthopedist as directed. - Time Spent with Patient Total time spent providing and/or coordinating discharge services: - Discharge Medications Prescriptions: New Ondansetron ODT [Zofran ODT] 4 mg SL Q4HR PRN #20 tab.rapdis PRN Reason: Nausea And Vomiting Continued Ferrous Sulfate [Iron] 325 mg PO DAILY Cholecalciferol (Vitamin D3) [Vitamin D3] 3,000 unit PO DAILY Ubidecarenone [Coenzyme Q10] 100 mg PO DAILY Albuterol Sulfate [Proair Hfa] 1 - 2 puff IH Q4-6H PRN PRN Reason: Shortness Of Breath Budesonide/Formoterol 160/4.5 [Symbicort 160/4.5] 2 puff IH BIDR Dm Hb/PE/Acetaminophen/Chlorph [[place] Plus Cld-Cough Cp] 1 cap PO DAILY PRN PRN Reason: Cough Lovastatin 40 mg PO QPM Omeprazole [PriLOSEC] 20 mg PO BID PRN PRN Reason: GERD Docusate [Colace] 100 mg PO BID capsule MOM Conc [MILK OF MAGNESIA conc] 10 ml PO DAILY PRN ud.liq PRN Reason: Constipation Home Medications: Cholecalciferol (Vitamin D3) [Vitamin D3] 3,000 unit PO DAILY 06/07/16 [History] Ferrous Sulfate [Iron] 325 mg PO DAILY 06/07/16 [History] Ubidecarenone [Coenzyme Q10] 100 mg PO DAILY 07/27/18 [History] Albuterol Sulfate [Proair Hfa] 1 - 2 puff IH Q4-6H PRN 07/28/18 [History] Budesonide/Formoterol 160/4.5 [Symbicort 160/4.5] 2 puff IH BIDR 07/28/18 [History] Dm Hb/PE/Acetaminophen/Chlorph [[place] Plus Cld-Cough Cp] 1 cap PO DAILY PRN 07/28/18 [History] Lovastatin 40 mg PO QPM 07/28/18 [History] Omeprazole [PriLOSEC] 20 mg PO BID PRN 07/28/18 [History] Docusate [Colace] 100 mg PO BID capsule 07/31/18 [Rx] MOM Conc [MILK OF MAGNESIA conc] 10 ml PO DAILY PRN ud.liq 07/31/18 [Rx] Ondansetron ODT [Zofran ODT] 4 mg SL Q4HR PRN #20 tab.rapdis 07/10/19 [Rx] Allergies/Adverse Reactions: Allergy/AdvReac Type Severity Reaction Status Date / Time iodine Allergy See Verified 07/31/18 18:06 Comments sulfur dioxide Allergy Rash Verified 07/31/18 18:06 Date of admission: 07/31/18 19:18 Primary care physician: Luis Webb DO Consults: 07/31/18 16:53 Consult to Occupational Therapy [CONS] Routine Comment: Evaluate, develop and implement POC Reason for Consult: Evaluate, develop and implement POC Does patient have active BEDREST order?: No Is patient medically & hemodynamically stable?: Yes Patient assessed for mobility or mobilized this visit?: No Consult to Physical Therapy [CONS] Routine Comment: Evaluate, develop and implement POC Reason for Consult: Evaluate, develop and implement POC Does patient have active BEDREST order?: No Is patient medically & hemodynamically stable?: Yes Patient assessed for mobility or mobilized this visit?: No 07/31/18 18:14 Consult to Surface Boss [CONS] Routine Reason for SW Consult: discharge planning - Constitutional Vitals: Temp Pulse Resp BP Pulse Ox 98.6 F 61 16 127/68 95 08/23/18 07:07 08/23/18 07:07 08/23/18 07:07 08/23/18 07:07 08/23/18 07:07 - Patient Status Disposition: Home Health Service - Discharge Instructions Follow Up With: Luis eWbb DO [Primary Care Provider] - 1 week - Diet and Activity Activity: as per physical therapy Diet: low salt diet
--- NOTE | 2018-08-23 10:19 | Physician Discharge Referral ---
Home Health/Hosp Referral Info Transfer to: Home Health Attending Provider: Ian Provider in Charge Post Discharge: PCP (Luis Webb DO) - Diagnosis (1) Humeral head fracture Priority: Primary Status: Acute (2) Anemia Priority: Secondary Status: Acute (3) COPD (chronic obstructive pulmonary disease) Priority: Secondary Status: Chronic (4) Nausea Priority: Secondary Status: Acute (5) UTI (urinary tract infection) Priority: Secondary Status: Resolved - Respiratory Orders Smoking Cessation: Smoking cessation has been advised. For more information, call the [place] [employer] Quit Line at [phone]-NOW. - Diet/Nutrition Diet/Nutrition Orders: Cardiac - Activity Activity Orders: Walker - Services Needed Following services are medically necessary services: Nursing, Home Health Aide, Physical Therapy, Occupational Therapy - Transfer Medications Prescriptions: Ondansetron ODT [Zofran ODT] 4 mg SL Q4HR PRN #20 tab.rapdis PRN Reason: Nausea And Vomiting Home Medications: Cholecalciferol (Vitamin D3) [Vitamin D3] 3,000 unit PO DAILY 06/07/16 [History] Ferrous Sulfate [Iron] 325 mg PO DAILY 06/07/16 [History] Ubidecarenone [Coenzyme Q10] 100 mg PO DAILY 07/27/18 [History] Albuterol Sulfate [Proair Hfa] 1 - 2 puff IH Q4-6H PRN 07/28/18 [History] Budesonide/Formoterol 160/4.5 [Symbicort 160/4.5] 2 puff IH BIDR 07/28/18 [History] Dm Hb/PE/Acetaminophen/Chlorph [[place] Plus Cld-Cough Cp] 1 cap PO DAILY PRN 07/28/18 [History] Lovastatin 40 mg PO QPM 07/28/18 [History] Omeprazole [PriLOSEC] 20 mg PO BID PRN 07/28/18 [History] Docusate [Colace] 100 mg PO BID capsule 07/31/18 [Rx] MOM Conc [MILK OF MAGNESIA conc] 10 ml PO DAILY PRN ud.liq 07/31/18 [Rx] Ondansetron ODT [Zofran ODT] 4 mg SL Q4HR PRN #20 tab.rapdis 08/23/18 [Rx] Allergies/Adverse Reactions: Allergy/AdvReac Type Severity Reaction Status Date / Time iodine Allergy See Verified 07/31/18 18:06 Comments sulfur dioxide Allergy Rash Verified 07/31/18 18:06 Certification: Further, I certify that my clinical findings support that this patient is homebound (i.e. absences from home require considerable and taxing effort and are for medical reasons or gnosticist services or infrequently or short duration when for other reasons) because: Homebound Reason: Leaving home requires considerable and taxing effort due to condition (Reverse right TSR with impaired ambulation ability) Attestation: My signature below is to certify that this patient is under my care and that I, or nurse practitioner, or a physician's programs assistant working with me, has a [id number] encounter with this patient.
[2018-08-23] MEDS: Budesonide/Formoterol 160/4.5 1 PUFF INH IH SCH (10:43)
[2018-08-23] MEDS: Cholecalciferol (D-3) 1,000 UNIT (25MCG) TABLET PO SCH (11:33)
[2018-08-23] MEDS: Methyl Salicylate/Menthol 28 GM TUBE TP SCH (11:34)
== END 2018-08-23 13:19 | disposition home health service (06) | DRG 560 ==
LOC: INPPIK 19:18
PROVIDERS: ADMIT Internal Medicine; ATTEND Internal Medicine